=== PATIENT | male | born 1940 | race Hispanic/Latino ===

== ENCOUNTER 2017-01-01 15:11 | Emergency (ER) | payer MEDICARE ==
[~2017-01-01] VITALS: Ht 157.5 cm; Wt 68.2 kg
[~2017-01-01 15:11] MED LIST: LISI40TA PO; amlodipine besylate PO; aspirin PO
[2017-01-01 15:20] VITALS: BP 193/103; PULSE 82; RESP 22; O2SAT 98
[2017-01-01 15:28] VITALS: BP 203/95; PULSE 73; RESP 16; O2SAT 98
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
[2017-01-01] MEDS ORDERED: HYDROcodone-APAP 5-325 mg Tablet PO ONE (15:45)
[2017-01-01 15:47] LABS: BASOPHILS % (AUTO) 0.5 % (0-3); EOSINOPHILS % (AUTO) 3.4 % (0-5); MONOCYTES % (AUTO) 7.2 % (4-12); Mean Corpuscular Hemoglobin 31.3 pg (27.0-35.0); Mean Corpuscular Volume 90.4 fL (81-100); Platelet Count 199 bil/L (150-400)
[2017-01-01 16:23] LABS: Magnesium 2.1 mg/dL (1.6-2.6)
[2017-01-01 16:24] LABS: TROPONIN T < 0.010 ug/L (0.0-0.011)
[2017-01-01 16:45] VITALS: BP 167/97; PULSE 63; RESP 17; O2SAT 95
--- NOTE | 2017-01-01 17:04 | DRSVH ---
PROCEDURE: X-RAY LUMBAR SPINE, 2 OR 3 VIEW INDICATIONS: fall TECHNIQUE: 3 views of the lumbar spine were acquired. COMPARISON: None. FINDINGS: Bones: 5 [id number] vertebrae are present. There is normal bony alignment. No vertebral body c ompression fractures. No suspicious bony lesions. Mild multilevel disc degeneration lower lumbar sp ine facet joint arthropathy. Soft tissues: Overlying bowel gas pattern is normal. No suspicious soft tissue calcifications. Vas cular calcifications indicate atherosclerosis. IMPRESSION: No displaced fracture seen. If there is continued pain, followup exam or additional adolph ging such as MRI or CT could be performed for further assessment. Dictated by: Jadiel Cobb RRA Interpreted: Skye Zarate MD on 01/01/2017 at 16:56 Transcribed by: MANE on 01/01/2017 at 16:56 Approved by: Skye Zarate MD, PhD on 01/01/2017 at 16:57
--- NOTE | 2017-01-01 17:04 | DRSVH ---
PROCEDURE: X-RAY CHEST ONE VIEW, PORTABLE ([id number]) INDICATIONS: CHEST PAIN TECHNIQUE: One view of the chest was acquired. COMPARISON: [facility], , CHEST 1VW (PORTABLE), 08/16/2013, 6:42. FINDINGS: Surgical changes and devices: None. Lungs and pleura: No pleural effusions or pneumothorax. Lungs are clear. Mediastinum: Mediastinal contours appear normal. Heart size is normal. Bones and chest wall: No suspicious bony lesions. Overlying soft tissues appear unremarkable. IMPRESSION: Tortuous aorta redemonstrated no acute cardiopulmonary disease. Dictated by: Jadiel Cobb [facility] Interpreted: Skye Zarate MD on 01/01/2017 at 16:55 Transcribed by: MANE on 01/01/2017 at 16:55 Approved by: Skye Zarate MD, PhD on 01/01/2017 at 16:55
--- NOTE | 2017-01-01 17:05 | DRSVH ---
PROCEDURE: X-RAY PELVIS, ONE OR TWO VIEWS ([id number]) INDICATIONS: fall TECHNIQUE: 1 view(s) of the pelvis acquired. COMPARISON: None. FINDINGS: Bones: No fractures or dislocations. No suspicious bony lesions. Osteophytic changes. Soft tissues: Visualized bowel gas pattern is normal. No suspicious soft tissue calcifications. IMPRESSION: No displaced fracture seen. If there is continued pain, followup exam or additional adolph ging such as MRI or CT could be performed for further assessment. Dictated by: Jadiel Cobb RRA Interpreted: Skye Zarate MD on 01/01/2017 at 16:57 Transcribed by: MANE on 01/01/2017 at 16:57 Approved by: Skye Zarate MD, PhD on 01/01/2017 at 16:57
[2017-01-01] MEDS ORDERED: AMLO5TAB2 PO (17:50)
[2017-01-01] MEDS ORDERED: HYDR-4003 PO (17:50)
[2017-01-01 18:24] VITALS: BP 180/94; PULSE 72; RESP 18; O2SAT 96
== END 2017-01-01 18:27 | disposition home or self-care (01) ==
LOC: SED 15:49
DX: M79.605 Pain in left leg (principal); M54.9 Dorsalgia, unspecified; I10 Essential (primary) hypertension; R07.9 Chest pain, unspecified; R10.9 Unspecified abdominal pain; E11.9 Type 2 diabetes mellitus without complications; F17.200 Nicotine dependence, unspecified, uncomplicated; Z86.73 Personal history of transient ischemic attack (TIA), and cerebral infarction without residual deficits; Z79.82 Long term (current) use of aspirin